=== PATIENT | male | born 1995 | race Caucasian/White ===

== ENCOUNTER 2018-10-02 23:24 | Emergency (ER) | payer BC, OTHER, SELFPAY ==
[2018-10-02] MEDS ORDERED: Gentamicin Ophth Soln 0.3% 5 ml Bottle ONE (23:43)
[2018-10-02] MEDS ORDERED: Acetaminophen/Codeine 30-300mg Tablet ONE (23:54)
== END 2018-10-02 23:58 | disposition home or self-care (01) ==
LOC: BURERS 23:24
DX: S05.02XA Injury of conjunctiva and corneal abrasion without foreign body, left eye, initial encounter (principal); S05.01XA Injury of conjunctiva and corneal abrasion without foreign body, right eye, initial encounter; W89.0XXA Exposure to welding light (arc), initial encounter
CPT/HCPCS: 99283